=== PATIENT | female | born 1985 | race Caucasian/White ===

== ENCOUNTER 2016-10-21 12:18 | Emergency (ER) | payer OTHER | END 2016-10-21 12:28 | disposition home or self-care (01) | LOC: ER 12:18 | DX: S93.402A Sprain of unspecified ligament of left ankle, initial encounter (principal); J45.909 Unspecified asthma, uncomplicated; Z90.49 Acquired absence of other specified parts of digestive tract; W10.1XXA Fall (on)(from) sidewalk curb, initial encounter | CPT/HCPCS: 73610-LT; 99283 ==